=== PATIENT | male | born 1960 | race Caucasian/White ===

== ENCOUNTER 2019-09-19 07:12 | Day surgery (SDC) | payer SELFPAY ==
[~2019-09-19 07:12] MED LIST: ADVIL MIGRAI200 M1 PO; CRESTOR20 MG PO; PAIN RELIEF EX500 M1 PO; WELLBUTRIN XL150 MG PO
[2019-09-19] MEDS ORDERED: PERCOCET 10/31 COMBO PO (11:30)
[2019-09-19 12:04] VITALS: BP 133/72
== END 2019-09-19 12:30 | disposition home or self-care (01) | DRG 502 ==
LOC: ORM 07:12
PROVIDERS: ATTEND Orthopaedic Surgery
PROC: 0LQ24ZZ Repair Left Shoulder Tendon, Percutaneous Endoscopic Approach (ICD-10-PCS; principal; 2019-09-19)
PROC: 0LS44ZZ Reposition Left Upper Arm Tendon, Percutaneous Endoscopic Approach (ICD-10-PCS; 2019-09-19)
PROC: 0RNK4ZZ Release Left Shoulder Joint, Percutaneous Endoscopic Approach (ICD-10-PCS; 2019-09-19)
PROC: 3E0T3BZ Introduction of Anesthetic Agent into Peripheral Nerves and Plexi, Percutaneous Approach (ICD-10-PCS; 2019-09-19)
DX: M75.122 Complete rotator cuff tear or rupture of left shoulder, not specified as traumatic (principal); S43.432A Superior glenoid labrum lesion of left shoulder, initial encounter; M94.212 Chondromalacia, left shoulder; F17.210 Nicotine dependence, cigarettes, uncomplicated; X58.XXXA Exposure to other specified factors, initial encounter; Z11.59 Encounter for screening for other viral diseases
CPT/HCPCS: C9290